=== PATIENT | female | born 1985 | race Caucasian/White ===

== ENCOUNTER 2020-11-08 18:28 | Outpatient (REF) | payer MEDICAID, SELFPAY ==
[2020-11-08 21:11] LABS: Abs Immature Grans 0.06 10^3/uL (0.0-0.06); Absolute Basophil Count 0.01 10^3/uL (0.0-0.2); Absolute Eosinophil Count 0.12 10^3/uL (0.0-0.7); Absolute Lymphocyte Count 1.64 10^3/uL (1.2-3.4); Absolute Monocyte Count 0.47 10^3/uL (0.1-0.8); Absolute Neutrophil Count 4.18 10^3/uL (1.2-6.7); Basophils % 0.2; Eosinophils % 1.9; HCT 42.4 % (36.0-46.0); HGB 14.2 g/dL (11.2-15.7); Immature Grans % 0.9; Lymphocytes % 25.3; MCH 33.1 pg (27.0-33.0); MCHC 33.5 % (32.0-36.0); MCV 98.8 fL (80-95); MPV 11.9 fL (8.0-11.0); Monocytes % 7.3; Neutrophils % 64.4; Nucleated RBC 0 %; Platelet Count 109 10^3/uL (130-400); RBC 4.29 10^6/uL (3.93-5.22); RDW 12.2 % (11.7-14.6); RDW-SD 44.4 fL; WBC 6.48 10^3/uL (4.4-10.8)
[2020-11-08 21:20] LABS: ALT 15 U/L (14-59); AST 10 U/L (15-37); Albumin 4.6 g/dL (3.4-5.0); Alkaline Phosphatase 63 U/L (46-116); BUN 8 mg/dL (7-18); Bilirubin, Total 0.5 mg/dL (0.2-1.0); CREATININE 0.7 mg/dL (0.55-1.02); Calcium 9.2 mg/dL (8.5-10.1); Chloride 104 mmol/L (98-107); Glucose 98 mg/dL (74-106); Lipase 81 U/L (73-393); Potassium 4.6 mmol/L (3.5-5.1); Sodium 142 mmol/L (136-145); Total Protein 7.4 g/dL (6.4-8.2)
[2020-11-08 21:56] LABS: Bilirubin Negative (Negative); Blood Negative (Negative); Clarity Clear (Clear); Glucose Negative (Negative); Ketones Negative (Negative); Leukocyte Esterase Negative (Negative); Nitrite Negative (Negative); Urobilinogen 0.2 EU/dL (Up TO 0.2)
[2020-11-08 21:57] LABS: HCG Qual (Urine) Negative
[2020-11-09 17:07] LABS: ESR < 1 mm/hr (<or=20)
== END 2020-11-08 18:29 | disposition home or self-care (01) ==
LOC: NCHCN 18:28
PROVIDERS: PCP Physician Assistant; Visit Provider Family Medicine
DX: K92.1 Melena (principal); R10.9 Unspecified abdominal pain
CPT/HCPCS: 80053; 83690; 85652; 80354; 81003; 81025; 85025

== ENCOUNTER 2021-01-29 02:35 | Outpatient (CLI) | payer MEDICAID, SELFPAY ==
[2021-01-29 10:56] LABS: Source Nasal/Nares
[2021-01-29 15:24] LABS: COVID-19 PCR Negative (Negative)
== END 2021-01-29 02:36 | disposition home or self-care (01) ==
LOC: LBO 02:35
PROVIDERS: PCP Family Medicine; Visit Provider Surgery
DX: Z20.822 Contact with and (suspected) exposure to COVID-19 (principal); Z01.818 Encounter for other preprocedural examination
CPT/HCPCS: 87635

== ENCOUNTER 2021-01-31 07:09 | Day surgery (SDC) | payer MEDICAID, SELFPAY ==
[2021-01-31 07:18] VITALS: BP 92/60; PULSE 70; RESP 16; TEMP 36.5; O2SAT 99
[2021-01-31] MEDS: Lactated Ringers 1,000 ML 80 ML IV (07:38)
--- NOTE | 2021-01-31 07:45 | ANES.PREOP_ITS ---
General Info Date of Service Date Performed: 01/31/21 Height: 5 ft 2 in Weight: 55.1 kg Body Mass Index (BMI): 22.2 Surgical Procedure: Operation Date: 01/31/21 08:20 Proposed Procedures Side Surgeon p Colonoscopy, POSSIBLE HEMORRHOID BANDING Kylah Delgado, DO Meds Allergies and Home Medications Allergies Allergy/AdvReac Type Severity Reaction Status Date / Time clindamycin Allergy Severe Anaphylaxsi Unverified 01/28/21 09:54 s Home Medication Medication Instructions Recorded acetaminophen 325 mg tablet 650 mg PO Q6H PRN tab 11/14/20 medroxyprogesterone 150 mg/mL 150 mg IM [id number] 11/14/20 intramuscular suspension Current Visit Medications: Current Medications Generic Name Dose Route Start Last Admin Trade Name Freq PRN Reason Stop Dose Admin Ringer's Solution 1,000 mls @ 80 mls/hr 01/31/21 06:00 01/31/21 07:38 IV 03/01/21 23:59 80 mls/hr INFUSION MARLENA Administration IV Miscellaneous Supplies 1 each 01/31/21 06:00 Iv Access IV 03/01/21 23:59 DIRECTED MARLENA Sodium Chloride 0 ml 01/31/21 06:00 Normal Saline Flush 10 Ml Syr IV 03/01/21 23:59 PRN PRN Sodium Chloride 0 ml 01/31/21 06:00 Normal Saline 10 Ml Vial IJ 03/01/21 23:59 DIRECTED PRN Sterile Water 0 ml 01/31/21 06:00 Water,Injection,Sterile 10 Ml Vial IJ 03/01/21 23:59 DIRECTED PRN [facility] Active Problems Active Problems: Problem Status Onset Code Rectal bleeding K62.5 Family history of malignant neoplasm of colon in relative diagnosed when younger than 50 years of age Z80.0 12/22/14 Z33.1 Smoker 12/22/14 F17.200 H/O surgical procedure Z98.89 Thrombocytopenia D69.6 False labor 12/22/14 O47.9 Ovarian cyst 12/22/14 N83.20 Medical History Medical History Abdominal pain Female pelvic pain L > R side. Nl pelvic + renal u/s. Hematochezia History of removal of ovarian cyst laparoscopic ovarian cystectomy after each . most recent cystectomy at [facility] 02/2015. Tobacco use Surgical History Surgical History Diagnostic Laproscopy 2 operative laparoscopies with ovarian cystectomies. [facility]. Dr. Byrd. 02/2015 L sided. ( 2 mo PP) History of tubal ligation (~06/08/17) Tobacco Smoking/Tobacco Use Status: Current every day Tobacco Type: cigarettes Smoking cigarettes per day: 10 Years smoked: 10 Alcohol Alcohol Intake: current Alcohol intake frequency: holidays/special occasions only Substance Use Substance use: Daily Substance use type: marijuana Vital Signs and Lab Results Vital Signs Most Recent Vital Signs in EMR: Most Recent Vital Signs Temp Pulse Resp BP Pulse Ox 36.5 C 70 16 92/60 L 99 01/31/21 07:18 01/31/21 07:18 01/31/21 07:18 01/31/21 07:18 01/31/21 07:18 Point of Care Results Point of Care Results: POC- Test(urine) Negative 01/31/21 07:40 Lab Results Blood Type / Crossmatch: No Data to Display Complete Blood Count: No Data to Display Complete Metabolic Panel: No Data to Display Liver Function Panel: No Data to Display Coagulation Panel: No Data to Display Cardiac Panel: No Data to Display Arterial Blood Gas: No Data to Display Venous Blood Gas: No Data to Display Pancreas Panel: No Data to Display Thyroid Panel: No Data to Display Infectious Disease: Coronavirus (COVID-19)(PCR) Negative (Negative) 01/29/21 09:02 01/29/21 Coronavirus 2019 Source Nasal/nares 01/29/21 09:02 01/29/21 Blood Cultures: No Data to Display Toxicology Panel: No Data to Display Panel: No Data to Display Anesthesia Assessment and Plan Anesthesia History Personal History: No History of Anesthesia Complications Family History: No Family History of Anesthesia Complications Exercise Tolerance Exercise Tolerance: Metabolic Equivalents>4 Cardiac & Pulmonary Exam Cardiac Exam: Normal S1/S2 Heart Sounds Pulmonary Exam: Clear Bilateral Breath Sounds Airway Exam Known Difficult Airway: No Mallampati Class: 2 Mouth Opening: Normal (> 3cm) Thyromental Distance: Greater than 3 cm Neck Range of Motion: Full ROM Neck Circumference: Normal Teeth Condition: Removable Dentures/Plates Upper and Removable Dentures/Plates Lower ASA Classification ASA Score: ASA 2 Emergency Case?: No NPO Status NPO Status: NPO Clears >2 hours, Solids >8 hours Status Status: Not Relevant due to Medical History Anesthesia Plan Resuscitation Status: Full Code Anesthesia Technique: General Anesthesia Airway Planned: Natural Airway Monitors Used: Standard Monitors
[2021-01-31 07:51] VITALS: BMI 22.2
--- NOTE | 2021-01-31 08:33 | W.PM.HP.N ---
Date of service: 01/31/21 Time of Service: 08:33 Assessment and Plan Assessment and plan (1) Rectal bleeding: Status: Acute Assessment and plan: Plan:Colonscopy w/ MAC The?patient will be scheduled by my office. ? The pt understands that they need to do a bowel prep and the importance of hydration during this.? The patient understands there is a theoretical risk of renal failure.? For healthy patients we use Gatorade/Miralax Prep.? ?For anyone with renal concerns- GoLytely will be used. ? Plavix and coumadin will need to be held except in unusual circumstances. ? Patients in A. Fib do not need to be bridged with Lovenox or on CVA prophylaxis.? A baby ASA can be continued but full dose ASA needs to be stopped for 10 days prior to the procedure. ? A complete H & P is required within 30 days of the procedure.? MAC is used for the colonoscopy.? ? Colonoscopy does not require antibiotics prophylaxis. ? Thank you for allowing me to participate in the care of this Patient.? A copy of the Endoscopy report will be forwarded to your office. Informed consent is obtained for the procedural (explained in simple layman's terms that?the pt and/or family could understand) explaining risks vs benefits and alternatives to the procedure and consequences if we do not do the procedure and need/rational for the procedure. Risks include but are not limited to: bleeding, infection, perforation of colon.? This would necessitate emergency surgery to repair the damage w/ possible ostomy; and other associated complications w/ the required surgery. ? Also complications of anesthesia including aspiration, AR/CVA/. ? ? I discussed with the?patient would they could expect during the procedure, post procedure and recovery time and risks.? The patient understands that they need to have a ride home after the procedure.? The patient was given all this information in writing and expressed understanding. to your office.? If there are any questions or concerns please feel free to contact our office.? (2) Family history of malignant neoplasm of colon in relative diagnosed when younger than 50 years of age: Status: Acute (3) Smoker: Status: Chronic (4) IBS (irritable bowel syndrome): Status: Chronic History of Present Illness Consults Consult date: 01/31/21 Narrative: pt has pain and bloating. Pain is on the right side. She moves her bowels every day. 1-2x a day. She doesn' have pain or cramping when she moves her bowels. Occ will have bleeding - it seems random and no relation to fooods or activies. no problems w/ gluten or diary that she has ntoiced. she completed the prep- clear yellow. She has her period so she has pain or cramping. She still did not get her depo shot. she is still smoking no cp/sob chronic cough- non productive. no fevers. Review of Systems All systems reviewed & are unremarkable except as noted in HPI and below [facility] Medical History (Updated 01/31/21 @ 08:39 by Kylah Delgado DO) Abdominal pain Female pelvic pain L > R side. Nl pelvic + renal u/s. Hematochezia History of removal of ovarian cyst laparoscopic ovarian cystectomy after each . most recent cystectomy at [facility] 02/2015. Tobacco use Surgical History Diagnostic Laproscopy 2 operative laparoscopies with ovarian cystectomies. [facility]. Dr. Byrd. 02/2015 L sided. ( 2 mo PP) History of tubal ligation (~06/08/17) Social History Smoking/Tobacco Use Status: Current every day Tobacco Type: cigarettes Years smoked: 10 Smoking risk assessment performed?: Yes Alcohol Intake: current Alcohol Intake frequency: holidays/special occasions only Drug use: Daily Substance use type: marijuana Do you feel safe at home: Yes Do you feel safe in your relationship?: Yes Meds Allergies and Home Medications Allergies Allergy/AdvReac Type Severity Reaction Status Date / Time clindamycin Allergy Severe Anaphylaxsi Unverified 01/28/21 09:54 s Home Medications Medication Instructions Recorded Confirmed Type acetaminophen 325 mg tablet 650 mg PO Q6H PRN tab 11/14/20 01/28/21 History medroxyprogesterone 150 mg/mL 150 mg IM [id number] 11/14/20 01/28/21 History intramuscular suspension Exam Const General: cooperative, healthy appearing, comfortable, no acute distress, well developed and well groomed Nutritional Appearance: average body habitus and well nourished Orientation: alert, awake and oriented x3 HENMT Head: normal to inspection, normocephalic and atraumatic Ears: hearing grossly normal bilaterally and external ears normal General nose exam: external nose normal Face and sinus: normal facial exam and sinuses nontender Mouth: oral mucosae normal, lip normal, tongue normal and moist mucous membranes Teeth and gingiva: dentition normal Eyes General: appearance normal, both eyes and all related structures Conjunctivae: conjunctivae normal Sclera: sclerae normal Pupils: PERRL Neck Neck: normal visual inspection and full ROM Chest Chest: normal inspection of the chest Resp Effort & Inspection: normal respiratory effort, able to speak in complete sentences, no cough, no nasal flaring, not tachypneic and no use of accessory muscles Auscultation: clear to auscultation bilaterally, no rales, no rhonchi and no wheezes Cardio Jugular venous pressure: no JVD Rate: regular rate Rhythm: regular rhythm GI Inspection: normal to inspection, no edema and non-distended Palpation: soft, no masses, nontender and No ascites Auscultation: normal bowel sounds Skin General skin exam: no rashes or lesions noted Trauma: no lacerations or abrasions Neuro General: patient alert, patient oriented x3, oriented, moves all extremities and CN's II-XI intact bilaterally Cognition: normal cognition Speech: speech normal Extrem General: normal to inspection, full ROM and no clubbing, cyanosis or edema Psych Appearance: grossly normal and well kempt Mental Status: mental status grossly normal Speech and Movement: speech and movement normal Affect: normal affect Results Last Vital Signs Temp 36.5 C 01/31/21 07:18 Pulse 70 01/31/21 07:18 Resp 16 01/31/21 07:18 BP 92/60 L 01/31/21 07:18 Pulse Ox 99 01/31/21 07:18 COVID-19 Screening Have you, or household traveled for leisure in last 14 days?: No Had IN PERSON contact w/suspected or confirmed C-19 person: No
--- NOTE | 2021-01-31 08:58 | BOWEL_PTH ---
PATIENT: Meseret Mcdermott LOC: [facility] U#:[id number] AGE/SX: 35/F ROOM: RE01/31/[address]: Kylah Delgado : 1985 BED: DIS: 01/31/2021 SPEC #: [id number] RECD: 01/31/21 12:47 STATUS: JULIANN RE #: [id number] KI: 01/31/21 08:[address]: Kylah Delgado DEPT: Surgical Specimen RECD BY: Luh Wolf ENTERED: 01/31/21 12:48 SP TYPE: Bowel OTHR DR: Tez Yusuf Tissues: 1 - BIOPSY BOWEL 2 - BIOPSY BOWEL 3 - BIOPSY BOWEL Procedures: GROSS AND MICRO LEVEL 4 Comments: [id number]
--- NOTE | 2021-01-31 09:39 | W.COLOREPORT ---
Date of service: 01/31/21 Time of Service: 09:39 Colonoscopy Report Date of procedure: 01/31/21 Pre-op diagnosis general: rectal bleeding Post-op diagnosis procedure note: other Surgeon: Kylah Delgado Anesthesia Type: General LMA/ETT Prep: Miralax/Dulcolax Retraction Time: 30 Procedure Description: After informed consent was obtained the patient was taken to the procedure room and placed in a left decubitous position. Monitors were applied and a time out was done. The patients name, date of , procedure, allergies to medications and metal in their body was reviewed. The patient was then sedated. Once sedated and comfortable a rectal exam was done. External exam was normal. Internal exam revealed a normal sphincter tone and no palpable masses. The scope was then introduced and retrofelexed. No internal hemorrhoids were identified. The scope was then advanced to the cecum w/out difficulty. The TI and appendiceal orifice were identified. The prep was good. The scope was then slowly retracted over 30 minutes back into the rectum. She has a very large polyp at 30 cm. This has the characteristics of a adenoma. It is on a very long thick stalk. Its 2 cm at least. Polyp and stalk are removed in 2 separate bites. The polyp was removed with hot polypectomy snare. The stalk is removed with a partially with a hot polypectomy snare and partially with fulgurated at the base. All specimens are retrieved and no bleeding is noted. 2 clips are placed across the base. The tattoo injection device is on backorder it is not available to nguyen the site. It is clearly at 30 cm. There are no AVMs or diverticula or other abnormalities noted. There is also a small polyp that is in the cecum that is on a long thin stalk. This is removed with a hot biting forcep as well. The scope was removed and the patient was woken up and taken back to Same day surgery in stable condition. The patient tolerated the procedure well and there were no immediate complications. Follow up: The patient should follow up in 6m unless they develop changes in bowel habits or other new gastrointestinal complaints.
--- NOTE | 2021-01-31 09:41 | W.ANESPOSTOP ---
Postoperative Evaluation Date, Time and Location Date Performed: 01/31/21 Time Performed: 09:41 Patient Location: Day Surgery Unit Vital Signs Most Recent Imported Vital Signs: Most Recent Vital Signs Temp Pulse Resp BP Pulse Ox 36.5 C 70 16 92/60 L 99 01/31/21 07:18 01/31/21 07:18 01/31/21 07:18 01/31/21 07:18 01/31/21 07:18 Most Recent Manually Entered Vital Signs: Adult Blood Pressure: 92/65 Heart Rate: 80 Respirations: 16 Oxygen Saturation (%): 99 Temperature (C): 36.6 C Pain Score (0-10 Scale): 0 Pain Score Most Recent Pain Score: Most Recent Pain Score Pain Level 0 01/31/21 07:18 Assessment Mental Status: Awake (Alert & Oriented to Patient Baseline) Airway and Respiratory Function: Patent airway with normal (patient baseline) respiratory exam Cardiovascular Function: Hemodynamically Stable Hydration Status: Adequately Hydrated Nausea & Vomiting: No Nausea or Vomiting Pain: Pt. Denies Any Pain Peripheral Nerve Block: Patient did not receive a nerve block
[2021-01-31 09:43] VITALS: BP 92/65; PULSE 77; PULSE 80; RESP 16; TEMP 36.6; TEMPC 36.6; O2SAT 99
--- NOTE | 2021-01-31 09:44 | PDOC.DSDIS_ITS ---
Discharge Plan Disposition Patient Disposition: HOME Condition: Good Discharge Details Reason For Visit: colon scope Attending Provider: Kylah Power Primary Care Provider: Tez Yusuf Home Meds and New Rx's Prescriptions: No Action medroxyprogesterone [Depo-Provera] 150 mg/mL suspension 150 mg IM [id number] RF: 0 acetaminophen [Tylenol] 325 mg tablet 650 mg PO Q6H PRNRF: 0 Discharge Instructions Additional Instructions: DSU Colonoscopy Post- Op Instructions Instructions for Everyone who is given Anesthesia: For your safety, please do the following for the next twenty-four (24) hours: *Do Not operate a motor vehicle (car, truck, motorcycle, etc.) *Do Not drink alcoholic beverages or use any recreational drugs for the first 24 hours or while taking pain medications. The medications in your body may have a reaction that can be dangerous. *Do Not make any important decisions or sign any important papers. Findings:large polyps -Asiprin/NSAID's for 2 wks. Tylenol is ok No strenuous activity or lifting over 20 pounds x 72 hours. You will have slight amount of bleeding for the next 24 hours and with your first bowel movement. If you are passing clots larger than your fist, please return to the emergency department. Follow up: dr power in 2 wks. plan on a repeat colonscopy in 6 months. 1. No lifting over 20 pounds or strenuous activity for the first 72 hours after your procedure. After 72 hours there are no restrictions on your activity but you may feel fatigued for a few days. 2. After you arrive home you may have a light meal and return to your normal diet as you can tolerate it without feeling sick to your stomach. 3. You may have a bloated, gaseous feeling in your belly (abdomen) after a colonoscopy. Passing gas and belching will help. Walking or lying down on your left side with your knees flexed may relieve the discomfort. Call the office at [phone] (Office) or [phone] (Hospital) right away if you notice any of the following: a.Vomiting of blood or ?coffee ground stools?. b.Rectal bleeding 1Tbsp, blood clots or continuous bleeding. c.Severe belly (abdominal) pain. d.A hard distended belly (abdomen) and an inability to pass gas. 4. Please don?t expect to have a normal BM (bowel movement) for 2-3 days after your procedure. 5. If there are questions regarding the findings of your procedure, please contact your doctor 6. If you are unable to contact your doctor with a problem, contact the hospital at [phone]. 7. Continue all your regular medications unless directed otherwise. I understand the above instructions and have no questions. Signature of Patient or Adult Escort Name of Responsible Adult Escort Signature of Nurse Date/Time Discharge Orders Discharge Orders: Discharge Order (Routine); Ordered 01/31/21 Ordered By: Kylah Power DS: Diagnosis Discharge Diagnosis (1) Rectal bleeding: Status: Acute (2) Family history of malignant neoplasm of colon in relative diagnosed when younger than 50 years of age: Status: Acute (3) Smoker: Status: Chronic (4) IBS (irritable bowel syndrome): Status: Chronic
[2021-01-31 10:08] VITALS: BP 104/62; PULSE 62; RESP 16; TEMP 36.8; O2SAT 100
== END 2021-01-31 10:42 | disposition home or self-care (01) ==
PROVIDERS: PCP Family Medicine; Visit Provider Surgery
PROC: 0DJD8ZZ Inspection of Lower Intestinal Tract, Via Natural or Artificial Opening Endoscopic (ICD-10-PCS; CPT 45378; principal; 2021-01-31 08:15)
DX: K63.5 Polyp of colon (principal); D12.5 Benign neoplasm of sigmoid colon
CPT/HCPCS: 45384; 81025; 88305; J2001

== ENCOUNTER 2023-04-05 01:38 | Emergency (ER) | payer MEDICAID, SELFPAY ==
[2023-04-05 01:46] VITALS: BP 109/83; PULSE 65; RESP 20; TEMP 36.8
[2023-04-05] MEDS: Ibuprofen 600 MG TAB PO (02:28)
[2023-04-05] MEDS: Cephalexin 500 MG CAP PO (02:28)
[2023-04-05] MEDS: Povidone-Iodine Soln. 118 ML BTL (02:30)
--- NOTE | 2023-04-05 02:50 | ED.GENADUL_ITS ---
Discharge Plan Disposition Patient Disposition: Home Discharge Details Clinical Impression: Felon of finger of right hand Primary Care Provider: Tez Yusuf ED Provider: Vikki Clark Home Meds and New Rx's Prescriptions: New cephalexin 500 mg tablet 500 mg PO QID Qty: 40 0RF Continued medroxyprogesterone [Depo-Provera] 150 mg/mL suspension 150 mg IM [id number] acetaminophen [Tylenol] 325 mg tablet 650 mg PO Q6H PRN Discharge Instructions Instructions: Abscess (ED) Additional Instructions: You have a felon which is a finger pulp abscess. Leave dressing on for 12 hrs, then epsom salt soaks up to 6 times per day. Tylenol 650 mg every 4 hrs and/or Ibuprofen 600 mg every 6 hrs as needed for pain. Orthopedics will call to check on you in the next 48 hrs or so. Return to ED for fever of 100.4 or above, red streaks going up your arm, any other concerns. Stand Alone Forms: Work Release Discharge Data Discharge Date/Time-TO BE ENTERED AT DEPARTURE: 04/05/23 03:32 Medical Decision Making Case was discussed with Dr. Newell will have his follow-up office follow-up with the patient to assure she is improving. Usually these get better with draining and antibiotics. I will also have the patient do Epsom salt soaks. She will return for fever or red streaks going up her arm. I have asked her not to work until this is better. HPI General Date/Time Provider Initiated Documentation: 04/05/23 02:12 . HPI Narrative: This 37-year-old female patient presents with a chief complaint of severe distal right second finger pain that began several days ago. 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 She points to the palmar surface of her distal R 2nd finger as location of her pain. The pulp there is quite swollen and exquisitely tender to palpation. It is red. Sensation is intact. She has good range of motion. She denies fever, chills, or any other systemic complaints. Her tetanus is up-to-date. Related Data Home Medications Medication Instructions Recorded Confirmed acetaminophen 325 mg tablet 650 mg PO Q6H PRN 11/14/20 04/05/23 (Tylenol) medroxyprogesterone 150 mg/mL 150 mg IM [id number] 11/14/20 04/05/23 intramuscular suspension (Depo-Provera) cephalexin 500 mg tablet 500 mg PO QID #40 tabs 04/05/23 Previous Rx's Medication Instructions Recorded cephalexin 500 mg tablet 500 mg PO QID #40 tabs 04/05/23 Allergies Allergy/AdvReac Type Severity Reaction Status Date / Time clindamycin Allergy Severe Anaphylaxsi Unverified 01/28/21 09:54 s General Stated Complaint: Cellulitis GAL: 5 Review of Systems Constitutional Constitutional: Denies fever(s) Musculoskeletal Musculoskeletal: Reports other (Numbness and redness to pulp of the distal phalanx) [facility] All Active Problems Felon of finger of right hand (Acute) Inflammatory polyps of colon (Acute ~01/2021) Hamartomatous polyp of large intestine (Acute ~01/2021) IBS (irritable bowel syndrome) (Chronic) Rectal bleeding (Acute) Family history of malignant neoplasm of colon in relative diagnosed when younger than 50 years of age (Acute) (Acute 12/22/14) Smoker (Chronic 12/22/14) Thrombocytopenia (Chronic) False labor (Acute 12/22/14) Ovarian cyst (Acute 12/22/14) Medical History Abdominal pain Female pelvic pain L > R side. Nl pelvic + renal u/s. Hematochezia History of removal of ovarian cyst laparoscopic ovarian cystectomy after each . most recent cystectomy at [facility] 02/2015. Tobacco use Surgical History Diagnostic Laproscopy 2 operative laparoscopies with ovarian cystectomies. [facility]. Dr. Byrd. 02/2015 L sided. ( 2 mo PP) H/O surgical procedure A. OVARIAN CYST REMOVAL History of colonoscopy with polypectomy (~01/31/21) Stoiber, repeat in 6 months, Hamartomatous polyp with low-grade dysplasia History of tubal ligation (~06/08/17) Social History Smoking/Tobacco Use Status: Current every day Tobacco Type: cigarettes Years smoked: 10 Smoking risk assessment performed?: Yes Alcohol Intake: current Alcohol Intake frequency: holidays/special occasions only Drug use: Daily Substance use type: marijuana Housing: house Current gender identity: female Do you feel safe at home: Yes Do you feel safe in your relationship?: Yes Exam Const General: no acute distress and well developed Orientation: alert, awake and oriented x3 HENMT Head: normocephalic and atraumatic Eyes Conjunctivae: conjunctivae normal Neck Neck: supple Resp Effort & Inspection: normal respiratory effort Skin General skin exam: other (Hemphill warm dry) Extrem Right upper extremity: hand (R 2nd distal palmar pad red/hot/swollen/TTP, NVI distally) Course Vital Signs Vital signs: Vital Signs Temperature 36.8 C 04/05/23 01:46 Pulse 65 04/05/23 01:46 Respiratory Rate 20 04/05/23 01:46 Blood Pressure 109/83 04/05/23 01:46 Temperature 36.8 C 04/05/23 01:46 Temperature Source Oral 04/05/23 01:46 Pulse 65 04/05/23 01:46 Respiratory Rate 20 04/05/23 01:46 Respiratory Effort Normal, Non-Labored 04/05/23 01:49 Blood Pressure 109/83 04/05/23 01:46 Blood Pressure Position Sitting 04/05/23 01:46 Oxygen Delivery Method Room Air 04/05/23 01:46 Oxygen Flow Rate 0 04/05/23 01:46 Pain Level 8 04/05/23 01:46 Procedures Other Description: Suzy I and D: Digital block was done with 1% lidocaine with good anesthesia. See what look like a small foreign body on the pad of her finger and attempted to remove this with a 21-gauge needle. Moderate amount of pus was extruded from this. Following this the patient was Betadine prepped and sterilely draped. A lateral incision was made across the pad of the patient's distal phalanx. I did not get a lot more pus. The area was irrigated well with normal saline and a sterile dressing applied.
== END 2023-04-05 03:32 | disposition home or self-care (01) ==
PROVIDERS: Emergency Provider Emergency Medicine; PCP Family Medicine
DX: L03.113 Cellulitis of right upper limb (principal); F17.210 Nicotine dependence, cigarettes, uncomplicated
CPT/HCPCS: 10160; 99283